=== PATIENT | female | born 1975 | race African-American/Black ===

== ENCOUNTER 2019-11-20 19:47 | Emergency (ER) | payer MEDICARE, MEDICAID ==
[2019-11-20 20:26] VITALS: BP 117/67
--- NOTE | 2019-11-20 22:12 | UC ---
Skin Complaint HPI - HPI Summary HPI Summary: ABOUT 10 DAYS AGO PATIENT DEVELOPED SHARP PAIN BETWEEN HER SHOULDER BLADES. IT MIGRATED AROUND HER RIGHT SIDE TO THE MIDDLE OF HER STOMACH. SKIN FEELS KIND OF NUMB WITH TINY ELECTRIC SHOCKS. PAIN FEELS LIKE IT IS GETTING WORSE. DEVELOPED A RASH IN THE AREA. NO FEVER. - History of Current Complaint Chief Complaint: UCBackPain Time Seen by Provider: 11/20/19 20:57 Stated Complaint: SIDE PAIN Hx Obtained From: Patient Hx Last Menstrual Period: 10/26/19 Onset/Duration: Gradual Onset, Lasting Days, Still Present Timing: Constant Onset Severity: Moderate Current Severity: Moderate Pain Intensity: 5 Pain Scale Used: 0-10 Numeric Character: Pain Aggravating Factor(s): Nothing Alleviating Factor(s): Nothing - Allergy/Home Medications Allergies/Adverse Reactions: Allergies Allergy/AdvReac Type Severity Reaction Status Date / Time aspartame Allergy See Comment Verified 11/20/19 20:27 PMH/Surg Hx/FS Hx/Imm Hx Previously Healthy: Yes - Surgical History Surgical History: Yes Surgery Procedure, Year, and Place: LT TOTAL KNEE REPLACEMENT, LOW BACK X3 (NO METAL). gastric bypass 2009 - Family History Known Family History: Positive: Hypertension - Social History Alcohol Use: None Substance Use Type: None Smoking Status (MU): Light Every Day Tobacco Smoker Household Exposure Type: Cigarettes Review of Systems All Other Systems Reviewed And Are Negative: Yes Constitutional: Positive: Negative Skin: Positive: Rash Respiratory: Positive: Negative Cardiovascular: Positive: Negative Gastrointestinal: Positive: Negative Neurological: Positive: Paresthesia Physical Exam Triage Information Reviewed: Yes Appearance: Well-Appearing, No Pain Distress, Well-Nourished Vital Signs: Initial Vital Signs Temp 99.5 F 11/20/19 20:17 Pulse 89 11/20/19 20:17 Resp 16 11/20/19 20:17 BP 117/67 11/20/19 20:17 Pulse Ox 100 11/20/19 20:17 Vital Signs Reviewed: Yes Eyes: Positive: Conjunctiva Clear ENT: Positive: Hearing grossly normal Neck: Positive: Supple Respiratory: Positive: No respiratory distress, No accessory muscle use Cardiovascular: Positive: Pulses Normal Abdomen Description: Positive: Soft Musculoskeletal: Positive: No Edema Neurological: Positive: Alert Psychological: Positive: Age Appropriate Behavior Skin: Positive: Rashes - RAISED, RASH WITH DRIED SCABS EXTENDING FROM MIDLINE BACK WRAPPING AROUND TO MIDLINE ABDOMEN ON THE RIGHT IN APPROX T6-T7 DISTRIBUTION Course/Dx - Course Course Of Treatment: PRESENTATION CONSISTENT WITH SHINGLES. PATIENT IS ABOUT 10 DAYS OUT FROM SYMPTOM ONSET THEREFORE ANTIVIRAL UNLIKELY TO BE EFFECTIVE. SHE REPORTS HER DISCOMFORT SEEMS TO BE INCREASING. CONCERN FOR DEVELOPING POSTHERPETIC NEURALGIA. SHE HAS BEEN ON GABAPENTIN IN THE PAST FOR BACK PAIN AND TOLERATED IT WELL SO WILL TRY THIS AGAIN FOR HER NERVE PAIN. ADVISED TO TAKE IT ONCE DAILY AND IF THIS IS ENOUGH TO STAY AT THIS DOSE HOWEVER SHE MAY INCREASE SLOWLY UP TO A MAXIMUM OF 3 TIMES DAILY. ALSO ADVISED THAT IF SHE DECIDES TO STOP THE MEDICATION SHE MUST TAPER OVER AT LEAST 7 DAYS. ADVISED TO FOLLOW-UP WITH PCP WITHIN A COUPLE OF WEEKS IN CASE SHE NEEDS A REFILL. - Diagnoses Provider Diagnosis: Shingles, Post herpetic neuralgia Discharge ED - Sign-Out/Discharge Documenting (check all that apply): Patient Departure All imaging exams completed and their final reports reviewed: No Studies - Discharge Plan Condition: Stable Disposition: HOME Prescriptions: Gabapentin 300 mg PO TID #60 capsule Patient Education Materials: Jw (ED) Referrals: Eloise Etienne MD [Primary Care Provider] - If Needed Additional Instructions: YOUR PRESENTATION IS CONSISTENT WITH SHINGLES. GIVEN THAT YOU'VE HAD SYMPTOMS FOR ABOUT 10 DAYS NOW THERE IS NO INDICATION FOR ANY ANTIVIRAL MEDICATION. YOUR DISCOMFORT SEEMS TO BE GETTING WORSE YOU MAY BE DEVELOPING POSTHERPETIC NEURALGIA. TAKE GABAPENTIN THIS MAY HELP WITH THE SYMPTOMS. START BY TAKING IT ONCE DAILY. IF THIS IS ENOUGH TO CONTROL YOUR DISCOMFORT KEEP IT AT THIS DOSE. IF IT IS NOT GO AHEAD AND INCREASE TO TWICE DAILY. MAX DOSE IS 3 TIMES DAILY. WHEN YOU FEEL YOU ARE READY TO STOP THIS MEDICATION BE SURE TO TAPER IT DOWN OVER AT LEAST 7 DAYS. BE SURE TO MAKE AN APPOINTMENT WITH A PCP WITHIN THE NEXT COUPLE OF WEEKS IN CASE YOU NEED A REFILL. CALL THE NUMBER BELOW FOR ASSISTANCE IN ESTABLISHING WITH A PCP An additional resource available to assist in finding the appropriate physician for your health care needs is the [facility] ([facility]). You may contact them by calling [phone]. - Billing Disposition and Condition Condition: STABLE Disposition: Home
== END 2019-11-20 21:18 | disposition home or self-care (01) ==
LOC: UCEAST 19:47
DX: B02.29 Other postherpetic nervous system involvement (principal); F17.210 Nicotine dependence, cigarettes, uncomplicated; Z91.02 Food additives allergy status
CPT/HCPCS: 99202; G0463

== ENCOUNTER 2019-12-07 11:53 | Emergency (ER) | payer MEDICARE, MEDICAID ==
[2019-12-07 12:23] VITALS: BP 136/78
--- NOTE | 2019-12-07 13:37 | UC ---
Knee Pain HPI - HPI Summary HPI Summary: 44-year-old female with a history of a left knee replacement presents with one- week history of anterior left knee pain immediately below her kneecap. No known injury. States pain worsens with ambulation and full extension of the knee. She has taken ibuprofen with little relief in the pain. States always has some swelling of the medial knee since her surgery and it appears to be unchanged from baseline. She is able to walk and bear weight although with some discomfort. Denies fever, chills, or erythema. - History of Current Complaint Chief Complaint: UCLowerExtremity Stated Complaint: KNEE PAIN Time Seen by Provider: 12/07/19 12:45 Hx Obtained From: Patient Hx Last Menstrual Period: 11/23/19 Pain Intensity: 1 - Allergies/Home Medications Allergies/Adverse Reactions: Allergies Allergy/AdvReac Type Severity Reaction Status Date / Time aspartame Allergy See Comment Verified 11/20/19 20:27 Home Medications: Home Medications Ibuprofen TAB* [Motrin TAB* 400 MG] 400 mg PO Q6H PRN 12/07/19 [History Confirmed 12/07/19] PMH/Surg Hx/FS Hx/Imm Hx Previously Healthy: Yes - Denies significant PMH - Surgical History Surgical History: Yes Surgery Procedure, Year, and Place: LT TOTAL KNEE REPLACEMENT 2009, LOW BACK X3 (NO METAL). gastric bypass 2009 - Family History Known Family History: Positive: Hypertension - Social History Occupation: Disabled Lives: With Family Alcohol Use: None Substance Use Type: None Smoking Status (MU): Light Every Day Tobacco Smoker Amount Used/How Often: 1PPW Household Exposure Type: Cigarettes Review of Systems All Other Systems Reviewed And Are Negative: Yes Constitutional: Negative: Fever, Chills Skin: Negative: Bruising Respiratory: Positive: Negative Cardiovascular: Positive: Negative Gastrointestinal: Positive: Negative Genitourinary: Positive: Negative Motor: Negative: Weakness Neurovascular: Negative: Decreased Sensation Musculoskeletal: Positive: Other: - See HPI Neurological/Mental Status: Positive: Negative Is Patient Immunocompromised?: No Physical Exam - Summary Physical Exam Summary: GENERAL APPEARANCE: Well developed, well nourished, alert and cooperative, and appears to be in no acute distress. CARDIAC: Normal S1 and S2. No S3, S4 or murmurs. Rhythm is regular. There is no peripheral edema, cyanosis or pallor. Extremities are warm and well perfused. Capillary refill is less than 2 seconds. Peripheral pulses intact. LUNGS: Clear to auscultation without rales, rhonchi, wheezing or diminished breath sounds. ABDOMEN: Positive bowel sounds. Soft, nondistended, nontender. No guarding or rebound. No masses or hepatosplenomegally. MUSKULOSKELETAL: Normal muscular development. Limping gait. EXTREMITIES: Well healed scar to the anterior left knee. Mild edema of the left medial knee. No increased warmth. Tenderness to the anterior left knee immediately below the patella without effusion. No erythema or ecchymosis noted. Circulation and sensation intact. SKIN: Skin normal color, texture and turgor with no lesions or eruptions. Triage Information Reviewed: Yes Vital Signs: Initial Vital Signs Temp 98.5 F 12/07/19 12:17 Pulse 87 12/07/19 12:17 Resp 18 12/07/19 12:17 BP 136/78 12/07/19 12:17 Pulse Ox 100 12/07/19 12:17 Vital Signs Reviewed: Yes Diagnostics - Radiology No standard instances Radiology Interpretation Completed By: Radiologist Summary of Radiographic Findings: Order Information: KNEE LEFT 4+ VWS. Indication: Nontraumatic pain prosthetic LEFT knee. Anterior tibial pain. Pain with bending. Unable to bear weight. COMPARISON: No relevant prior exams available on the [facility] for comparison. Technique: LEFT knee: AP, tunnel, lateral, sunrise views. REPORT AND IMPRESSION: #. Total knee prosthesis in place with normal alignment. Negative for component fracture, periprosthetic fracture, or evidence for component loosening. #. Small chronic appearing ossicles at the periphery of the medial femoral-tibial joint line do not appear to insinuate between the articular surfaces. #. Segmental calcification along the course of the quadriceps tendon most likely reflecting sequela of chronic tendinopathy. #. Unremarkable soft tissue contours. Knee Pain Course/Dx - Course Course Of Treatment: 44-year-old female with a history of a left knee replacement presents with one- week history of anterior left knee pain immediately below her kneecap. No known injury. States pain worsens with ambulation and full extension of the knee. She has taken ibuprofen with little relief in the pain. States always has some swelling of the medial knee since her surgery and it appears to be unchanged from baseline. She is able to walk and bear weight although with some discomfort. Denies fever, chills, or erythema. Afebrile. Vital signs stable. On exam patient was noted to have a well healed scar to the anterior left knee. Mild edema of the left medial knee. No increased warmth. Tenderness to the anterior left knee immediately below the patella without effusion. No erythema or ecchymosis noted. Circulation and sensation was intact. X-ray showed no acute osseous injury with knee prosthesis in good alignment. Reviewed results with the patient. Recommending conservative treatment for acute left knee pain including [id number] analgesics and RICE. She is to follow-up with orthopedic surgery in 5-7 days if symptoms are not improving. Anticipatory guidance and warning symptoms reviewed with the patient. Verbalizes understanding and agrees with plan of care. - Differential Dx/Diagnosis Differential Diagnosis/HQI/PQRI: Bursitis, Dislocation, Fracture (Closed), Infection, Sprain, Tendonitis Provider Diagnosis: Left knee pain Discharge ED - Sign-Out/Discharge Documenting (check all that apply): Patient Departure All imaging exams completed and their final reports reviewed: Yes - Discharge Plan Condition: Stable Disposition: HOME Patient Education Materials: Knee Pain (ED) Referrals: Zayra Medina MD [Primary Care Provider] - Irene Membreno MD [Medical Doctor] - 5 Days (Call for appointment.) Additional Instructions: The x-ray performed in the clinic today showed that the knee replacement hardware was intact and no evidence of an acute injury. Rest the knee as much as possible. You may continue to walk and bear weight as tolerated. Apply ice to the affected area for 15-20 minutes at least 4 times a day to help with the pain and swelling. Elevate the leg to help reduce swelling. Take acetaminophen (Tylenol) or ibuprofen (Advil, Motrin) according to directions as needed for pain. Follow up with orthopedic surgery in 5-7 days if symptoms do not improve. Seek immediate medical attention if you have severe pain not managed with pain medication, you are unable to walk or bear any weight, or have any worsening of symptoms. - Billing Disposition and Condition Condition: STABLE Disposition: Home
== END 2019-12-07 13:50 | disposition home or self-care (01) ==
LOC: UCEAST 11:53
DX: M25.562 Pain in left knee (principal); F17.210 Nicotine dependence, cigarettes, uncomplicated; Z91.02 Food additives allergy status; Z96.652 Presence of left artificial knee joint
CPT/HCPCS: 99211; G0463